=== PATIENT | female | born 1955 | race Caucasian/White ===

== ENCOUNTER 2017-08-07 14:12 | Outpatient (CLI) | payer OTHER | END 2017-08-07 14:14 | LOC: LAB 14:12 | PROVIDERS: ATTEND Family Medicine | DX: E03.9 Hypothyroidism, unspecified (principal) | CPT/HCPCS: 36415; 84443 ==

== ENCOUNTER 2017-08-16 10:50 | Outpatient (CLI) | payer OTHER | END 2017-08-16 10:52 | LOC: LABRHC 10:50 | PROVIDERS: ATTEND Family Medicine | DX: N30.01 Acute cystitis with hematuria (principal) | CPT/HCPCS: 87086 ==

== ENCOUNTER 2017-10-03 15:02 | Outpatient (CLI) | payer OTHER ==
[2017-10-04 14:02] LABS: ADENOVIRUS DNA NEGATIVE (NEGATIVE); BORDETELLA PERTUSSIS DNA NEGATIVE (NEGATIVE); SOURCE: SWAB
== END 2017-10-03 15:03 ==
LOC: LABRHC 15:02
PROVIDERS: ATTEND Family Medicine
DX: R09.81 Nasal congestion (principal)
CPT/HCPCS: 87486; 87581; 87633; 87798

== ENCOUNTER 2018-03-19 10:46 | Outpatient (CLI) | payer OTHER ==
[2018-03-19 11:34] LABS: eGFR (African) > 60; eGFR (Non-African) > 60
== END 2018-03-19 10:47 ==
LOC: LAB 10:46
PROVIDERS: ATTEND Physician Assistant
DX: R53.83 Other fatigue (principal); E78.2 Mixed hyperlipidemia; E03.9 Hypothyroidism, unspecified; I10 Essential (primary) hypertension
CPT/HCPCS: 36415; 80053; 80061; 84439; 84443; 84481; 85651; 86038; 86141

== ENCOUNTER 2018-03-24 13:49 | Outpatient (CLI) | payer OTHER ==
--- NOTE | 2018-03-24 15:44 | Diagnostic Imaging Report ---
Report Submission Date: Mar 24, 2018 3:25:46 PM CDT Patient Study Name: GERALD GAY Date: Mar 24, 2018 2:02:22 PM CDT Modality Type: CT\SR Gender: F Description: CT C-SPINE W/O CONTRAS : 51 Institution: [facility] Physician: PRINCE SPRINGER CT cervical spine History: Neck pain Technique: Helically acquired images were obtained through the cervical spine. Sagittal and coronal reconstructions were performed. Findings: There has been anterior fusion with placement of interbody fusion devices at C4/5 and C7/T1. The fusion at C4/5 does appear to be solid. The fusion at C7/T1 is not complete. There is no prevertebral soft tissue swelling. There is no evidence for loosening of the hardware. The dens is intact. The lateral masses of C1 and C2 are aligned. Visualized paranasal sinuses and mastoid air cells are clear. C2/3: Unremarkable C3/4: There is no central stenosis. However, secondary to uncovertebral joint hypertrophy, there is [id number] right and moderate to severe left foraminal narrowing. C4/5: This is the level of prior fusion. There is no central stenosis or foraminal narrowing. C5/6: This is a level of significant abnormality. At this level, there is a broad-based posterior disc and osteophyte complex. The AP dimension of the canal is narrowed to approximately 8 mm generating at least moderate central stenosis. There is additionally severe bilateral foraminal narrowing secondary to uncovertebral joint hypertrophy. C6/7: There is mild central stenosis at this level with the AP dimension of the canal measuring approximately 9.5 mm. However, there is severe bilateral foraminal narrowing secondary to uncovertebral joint hypertrophy. C7/T1: This is the level of prior fusion without central stenosis or foraminal narrowing. Impression: Please see body of report with regard to postoperative and degenerative findings by level. Electronically signed on Mar 24, 2018 3:25:46 PM CDT by: Ly JANE
== END 2018-03-24 14:00 ==
LOC: RAD 13:49
PROVIDERS: ATTEND Physician Assistant
DX: M54.2 Cervicalgia (principal); R20.0 Anesthesia of skin
CPT/HCPCS: 72125

== ENCOUNTER 2018-04-09 03:41 | Emergency (ER) | payer OTHER ==
--- NOTE | 2018-04-09 04:25 | ED Physician Documentation ---
General Adult - HISTORIAN Historian: patient - HPI Stated Complaint: Urinary difficulty Chief Complaint: General Adult Onset: days ago Timing: worse Severity: moderate Further Comments: yes (Pt is a 62 yo female with severe abd/pelvic pain. Pt has hx urge incontinence as well as neck and back pain with sciatica and was seen in pcp's office yesterday and rx'd myrbetrique 25 mg qd. Pt had been on oxybutynin, which she says made her sx worse, causing vaginal pain, and wanted to try a different med. Pt c/o frequent urges to void, but is unable to, or has only dribbling voids. Pt says she feels as if her bladder and uterus ( though she has had a hysterectomy) are dropping down into her pelvis/vagina. Pt c/o burning with trying to void. Pt took pyridium, with no relief of burning. Pt denies nausea. Pt has had normal bm's without diarrhea/ constipation.) - ROS CONST: no problems EYES/ENT: none CVS/RESP: none GI/: abdominal pain, problems urinating MS/SKIN/LYMPH: back pain (chronic neck and back pain) - PAST HX Past History: other (Neck & back pain, sciatica; hypothyroidism; urge incontinence; HLD; HTN; Asthma; anxiety/depression.) Surgeries/Procedures: hysterectomy Allergies/Adverse Reactions: Allergies Allergy/AdvReac Type Severity Reaction Status Date / Time zoster vaccine live Allergy Unverified 04/09/18 03:59 sudfed/aluterol combo Allergy Severe Seizure Uncoded 04/09/18 03:59 Home Medications: Ambulatory Orders Medication Instructions Recorded Mirabegron [Myrbetriq] 25 mg PO DAILY 04/09/18 Phenazopyridine HCl [Pyridium] 100 mg PO TID 04/09/18 - SOCIAL HX Smoking History: non-smoker - FAMILY HX Family History: No (unk) - VITAL SIGNS Vital Signs: Vital Signs Temp Pulse Resp BP Pulse Ox 97.6 F 77 18 168/66 96 04/09/18 03:45 04/09/18 03:45 04/09/18 03:45 04/09/18 03:45 04/09/18 03:45 - REVIEWED ASSESSMENTS Nursing Assessment Reviewed: Yes Vitals Reviewed: Yes Progress - Progress Progress: U/a dipstick trace pos for glucose, ketone, protein, and 1+ pos for blood and bilirubin; Pos for Nitrites, but pt has taken pyridium which may have caused false results. CT abd/pelvis w/o contrast: L4-5 and L5-S1 fusion has been performed. Obesity is observed. Mild left hydroureteronephrosis is observed. The lung bases, liver, gallbladder, pancreas, adrenals, and spleen are unremarkable. Multiple surgical clips are present in the stomach. An indeterminate 2.4 cm hyperdense lesion emanates laterally from the mid right kidney. Bowel loops exhibit normal caliber and wall thickness. A small left renal cyst is present. Pelvic sections reveal a 3 mm distal left ureteral stone just proximal to the ureterovesical junction. Hysterectomy has been performed. Pelvic bowel loops are normal including a normal appendix. Impression: 1. 3 mm distal left ureteral stone with mild obstructive uropathy. 2. Indeterminate hyperdense 2.4 cm right renal lesion. Recommend nonemergent ultrasound follow-up. 3. Obesity, lumbar fusion, hysterectomy, and normal appendix. Toradol 15 mg IV in ER Zofran 4 mg IV in ER 1 L NS Dilaudid 0.5 mg IV x 2 in ER improved Rocephin 1 gm IV for possible UTI Bactrim DS 1 tab po in ER Flomax 0.4 mg po in ER D/c instructions Rx Flomax 0.4 mg. Take one by mouth once daily for 5 days or until kidney stone passes. Rx Bactrim DS. Take one every 12 hrs for 7 days. Rx Zofran ODT 4 mg. Take one every 8 hrs as needed for nausea/vomiting. Rx [place] (5/325). Take one or two every 4 to 6 hrs as needed for pain. Ketorolac (Toradol) 10 mg. Take one every 6 hrs as needed for pain. Maximum 4 per day. Maximum duration 5 days. Stop taking Celebrex while using Toradol. Start this evening in place of Celebrex. Take [place], as above, until this evening, for pain. Kidney stones that are less than 4 mm in size (yours is 3 mm) usually pass in 72 hours or less. Follow up with primary provider to arrange for ultrasound study of a 2.4 cm lesion seen on right kidney in CT scan. General Adult Physical Exam - PHYSICAL EXAM GENERAL APPEARANCE: moderate distress EENT: pharynx normal NECK: normal inspection, supple RESPIRATORY: no resp distress, chest non-tender, breath sounds normal CVS: reg rate & rhythm, heart sounds normal ABDOMEN: soft, normal bowel sounds, tenderness (lower abd tenderness), other ( pelvic exam: no bladder prolapse) BACK: normal inspection SKIN: warm/dry, normal color EXTREMITIES: non-tender, normal range of motion, no evidence of injury NEURO: oriented X3, motor nml, sensation nml Discharge Clincal Impression: Kidney stone, Urge incontinence, R kidney lesion on CT study Referrals: Skylar Perea MD [Primary Care Provider] - 2 Days Condition: Stable Disposition: HOME, SELF-CARE Decision to Admit: NO Decision Time: 06:45
[2018-04-09 04:40] LABS: BASOPHILS % 0.7 (0.0-1.5); MEAN CORPUSCULAR HEMOGLOBIN 30.9 pg (28.0-34.0); MEAN CORPUSCULAR VOLUME 94.5 fl (80.0-100.0); MONOCYTES % 4.9 % (0.0-11.0); NEUTROPHILS # 5.8 # k/uL (1.4-7.7)
[2018-04-09] MEDS: KETOROLAC TROMETHAMINE 30 MG/1ML VIAL ONE (04:40)
[2018-04-09] MEDS: KETOROLAC TROMETHAMINE 30 MG/1ML VIAL IVP ONE (04:40)
[2018-04-09 04:55] LABS: eGFR (African) > 60; eGFR (Non-African) > 60
[2018-04-09] MEDS: cefTRIAXone SODIUM 1 GM in 0.9 % SODIUM CHLORIDE 100 ML IV ONE (05:45)
[2018-04-09] MEDS: 0.9 % SODIUM CHLORIDE 1,000 ML IV ONE (05:45)
[2018-04-09] MEDS: ONDANSETRON HCL/PF 4 MG/ 2ML VIAL IVP ONE (05:50)
[2018-04-09] MEDS: cefTRIAXone SODIUM 1 GM VIAL ONE (05:51)
[2018-04-09] MEDS: HYDROmorphone HCL/PF 1 MG/ML DISP.SYRIN IVP ONE (05:51)
[2018-04-09] MEDS: 0.9 % SODIUM CHLORIDE 100 ML IV ONE (05:51)
[2018-04-09] MEDS: HYDROmorphone HCL/PF 2 MG/ML DISP.SYRIN ONE (05:51)
[2018-04-09] MEDS: TAMSULOSIN HCL 0.4 MG CAP.ER.24H PO ONE (06:03)
[2018-04-09] MEDS: SULFAMETHOXAZOLE/TRIMETHOPRIM 1 EACH TABLET PO ONE (06:04)
--- NOTE | 2018-04-09 06:39 | Diagnostic Imaging Report ---
DAVE TRAN [facility] [address] [facility] [address] [place], [place]. [address] Report Submission Date: Apr 09, 2018 5:09:31 AM CDT Patient Study Name: GERALD GAY Date: Apr 09, 2018 4:47:49 AM CDT Modality Type: CT\SR Gender: F Description: CT ABD PELVIS W/O CO : 51 Institution: [facility] Physician: DAVE TRAN Computed tomography abdomen pelvis without contrast History: Left flank pain and difficulty voiding Findings: Transverse abdomen and pelvis sections are obtained without contrast. L4-5 and L5-S1 fusion has been performed. Obesity is observed. Mild left hydroureteronephrosis is observed. The lung bases, liver, gallbladder, pancreas , adrenals, and spleen are unremarkable. Multiple surgical clips are present in the stomach. An indeterminate 2.4 cm hyperdense lesion emanates laterally from the mid right kidney. Bowel loops exhibit normal caliber and wall thickness. A small left renal cyst is present. Pelvic sections reveal a 3 mm distal left ureteral stone just proximal to the ureterovesical junction. Hysterectomy has been performed. Pelvic bowel loops are normal including a normal appendix. Impression: 1. 3 mm distal left ureteral stone with mild obstructive uropathy. 2. Indeterminate hyperdense 2.4 cm right renal lesion. Recommend nonemergent ultrasound follow-up. 3. Obesity, lumbar fusion, hysterectomy, and normal appendix. Electronically signed on Apr 09, 2018 5:09:31 AM CDT by: Octaviano JANE
[2018-04-09 07:35] VITALS: BP 148/68
[2018-04-09 08:59] LABS: APPEARANCE,URINE CLOUDY (CLEAR); COLOR,URINE YELLOW (YELLOW)
[2018-04-09 09:00] LABS: PH URINE 5.5 (5.0 - 8.0)
[2018-04-09 09:47] LABS: OCCULT BLOOD,URINE 1+ (NEGATIVE)
== END 2018-04-09 07:25 | disposition home or self-care (01) ==
LOC: ED 03:41
DX: N20.0 Calculus of kidney (principal); N39.41 Urge incontinence; N28.9 Disorder of kidney and ureter, unspecified
CPT/HCPCS: 74176; 80053; 81002; 85025; 87086; A9270; J0696; J1170; J1885; J2405; J7030; 51701; 96365; 96366; 96368; 96375; 99284; S1016

== ENCOUNTER 2018-04-29 13:33 | Outpatient (CLI) | payer OTHER ==
[~2018-04-29 13:33] MED LIST: Lidocaine 1% 5ml(IM or SUTURE)(PAIN CLINIC) ONE; TRIAMCINOLONE ACETONID 40MG/ML VIAL ONE; WATER FOR INJECTION,STERILE 100 ML VIAL IJ ONE
--- NOTE | 2018-05-04 14:48 | HISTORY AND PHYSICAL REPORT ---
REFERRING PHYSICIAN: Dr. Skylar Perea Dear Skylar: HISTORY OF PRESENT ILLNESS: I had the opportunity of seeing Mere Gallardo. Mere is a very nice 62-year-old white female who presents with right-sided neck, shoulder, and arm pain. She says that this has been going on for quite a while. She has had a C5-C6 and C7-T1 surgery done in 2009. She describes surgery followed by a revision of the surgery at an additional level. She said about 2 months ago, she began noticing right-sided neck pain radiating to her shoulder blade and into the posterior arm, forearm, wrist, and the entire hand. She is right hand dominant. She reports that the right hand feels weak. Pain is made worse with activity. Worse over the course of the day. Worse with driving. She gets knife-like sensations in the shoulder blade. Her first ACDF was done in 2009 with a revision done in 2011. She denies pain on the left. She denies an accident or an injury. She says that the symptoms get tremendously worse with extension of the neck and driving. She has a CT of her cervical spine from March of 2018 revealing C5-C6 and C6-C7 neural foraminal stenosis, mild C6-C7 central stenosis, and a C4-C5 and C7-T1 fusion. PAST MEDICAL HISTORY: 1. History of vision problems. 2. Hearing loss. 3. Nose or sinus problems. 4. Hypertension. 5. Bruising easily. 6. Asthma or bronchitis. 7. Urinary incontinence. 8. Kidney problems. 9. Seizures. 10. Depression. 11. Anxiety. 12. Thyroid disease. 13. GERD. 14. DJD. 15. Osteoarthritis. 16. Plantar fasciitis. 17. TMJ. 18. Tinnitus. PAST SURGICAL HISTORY: 1. Lumbar fusion with hardware. 2. ACDF x2. First one in [address] Abdul in [place]. The second was in [address] Senior in [place]. 3. Bunion repair x2. 4. . 5. Deviated septum repair. 6. D & C. 7. Ovarian cyst removal. 8. Tonsillectomy. CURRENT DAILY MEDICATIONS: 1. Atenolol 25 mg daily. 2. Iron daily. 3. B12 daily. 4. Aspirin 81 mg daily. 5. Biotin 10,000 daily. 6. Celebrex 200 mg at bedtime. 7. Duloxetine 90 mg at bedtime. 8. Ipratropium b.i.d. 9. Levothyroxine 75 mcg daily. 10. Lovastatin 40 mg daily. 11. Premarin 0.625 mg daily. 12. Flovent 80 mcg b.i.d. 13. Myrbetriq 25 mg at bedtime. 14. Alprazolam 0.25 mg p.r.n. 15. Atrovent inhaler 17 mcg p.r.n. 16. Flexeril 5 mg p.r.n. SOCIAL HISTORY: She has never used tobacco. She drinks alcohol approximately once per year. Denies recreational drugs. She is a since November of 2013. She has 2 children. She lives in a home with a friend. She completed 12 years of schooling. She is retired. She is not employed. She retired in 2017. She is not disabled. FAMILY HISTORY: Father with heart disease and pain problems related to his back. Mother with cancer. Sibling with stroke, diabetes, thyroid disease, and pain problems. REVIEW OF SYSTEMS: In the last month or so, she reports a hoarse voice, bleeding and bruising easily, urinary incontinence, cough or cold, stomach pain, kidney stones, constipation, feeling depressed, and feeling anxious. Pain is worsened with lying down and driving. Nothing improves her pain. PHYSICAL EXAMINATION: General: The patient is well nourished, well developed, and in no apparent distress. Awake, alert, and oriented. HEENT: Pupils are equal, round, and reactive to light and accommodation. Extraocular movements intact. No facial droop. Neck: There is full range of motion of the cervical spine. No evidence of adenopathy. Thyroid is nontender, not enlarged. Carotids are without bruits. Chest: Clear to auscultation bilaterally. Normal chest excursion. Heart: Regular rate and rhythm without murmur. Abdomen: Benign. Normoactive bowel sounds. Motor/sensory: Intact in the upper and lower extremities. Moves all extremities freely. Extremities: Strength is 5/5 and equal in the upper extremities. Conference Manager strength is somewhat diminished in the right hand versus the left. Reflexes are 2+ and equal in biceps tendon, triceps tendon, and brachioradialis. ASSESSMENT: 1. Anterior cervical diskectomy and fusion (ACDF) at C4-C5 and C7-T1. 2. C5-C6 and C6-C7 neural foraminal stenosis with disk osteophyte complex. PLAN: Plan for a right C6-C7 epidural steroid injection under fluoroscopic guidance today. We will follow this nice lady up and re-evaluate her in approximately 1 month. She is in agreement today and we will proceed. Thank you very much for allowing me to take part in the care of this nice lady. I appreciate the opportunity to take part in the care of your patients. cc: Dr. Skylar JANE
--- NOTE | 2018-05-04 14:56 | CERVICAL ESI WITH FLUORO ---
PROCEDURE: Right C6-C7 epidural steroid injection with fluoroscopic guidance. DESCRIPTION OF PROCEDURE: The risks and benefits were discussed with the patient, including the risks of infection, bleeding, nerve injury including paralysis, and headache. Furthermore, I discussed the risk of steroid exposure causing hyperglycemia, hypertension, osteoporosis, or increased infectious risks. The patient understood these risks and agreed to proceed. Consent was obtained. The patient was placed prone on the fluoroscopy table with a pillow underneath the chest to afford slight anterior flexion of the cervical spine. The patient's back of the neck was cleaned and a sterile drape was applied. A Tuohy epidural needle was inserted with a right paramedian approach at the C6-C7 interspace level. The position of the needle was verified with AP and lateral fluoroscopic views. The needle was advanced with a normal saline [id number] technique until [id number] was obtained. On obtaining [id number] to normal saline it was verified that there was no aspiration of CSF or blood. At this point, Omnipaque 240 myelogram dye was injected into the cervical epidural space. It was verified with fluoroscopic views that the dye was located within the epidural space in the desired distribution. At this point, the medication was injected into the cervical epidural space. The stylet was replaced in the needle and the needle was removed from the neck. The neck was cleaned free and a bandage was applied over the injection site. The patient tolerated the procedure well and was monitored afterwards for a total of 20 minutes during which time the vital signs remained stable and no adverse sequelae were experienced. The patient was discharged home in good condition. Prior to discharge the patient was given discharge instructions. ASSESSMENT: 1. Right cervical radiculitis. 2. Neural foraminal stenosis at C5-C6 and C6-C7. 3. Previous anterior cervical diskectomy and fusion (ACDF) at C4-C5 and C7-T1. PLAN: Right C6-C7 epidural steroid injection with fluoroscopic guidance. FOLLOW UP: Return to Clinic if problems develop or worsen. cc: Dr. Skylar JANE
== END 2018-04-29 13:35 ==
LOC: OUT 13:33
PROVIDERS: ATTEND Anesthesiology Pain Medicine
DX: M54.12 Radiculopathy, cervical region (principal); M99.51 Intervertebral disc stenosis of neural canal of cervical region
CPT/HCPCS: 62321; 99213; J3301; A4550; Q9966

== ENCOUNTER 2018-06-24 13:51 | Outpatient (CLI) | payer MEDICARE, OTHER ==
[~2018-06-24 13:51] MED LIST changes: +LIDOCAINE HCL/PF 2% 100 MG/5 ML VIAL IJ ONE; -Lidocaine 1% 5ml(IM or SUTURE)(PAIN CLINIC) ONE; +SALINE FLUSH 10 ML DISP.SYRIN IVF ONE; -WATER FOR INJECTION,STERILE 100 ML VIAL IJ ONE
--- NOTE | 2018-06-25 11:52 | CAUDAL ESI WITH FLUORO ---
SUBJECTIVE: Ms. Gallardo follows up on her cervicalgia neck pain. Right parascapular symptoms are much improved following cervical epidural injection. She says they are not completely gone, but she has been having a lot of low back pain and bilateral leg pain, worse on the left, but now also on the right. She had a history of an L4-L5 and S1 lumbar decompression, fusion, and instrumentation. She had an abdominal CT recently at [facility] and I can see that she has some recurrent stenosis above the level of her fusion. The junction is not well elucidated on abdominal CT and I have recommended an obtaining an MRI study to look at that level above her fusion. She denies having to flex to get relief. She says that being up on her feet and mopping the floor is what seems to make her symptoms the worst. She is planning on having bariatric surgery performed for weight reduction. At this point, I told her I would provide her with a palliative caudal epidural and follow her up in a month and obtain a new MRI study and then reevaluate both her neck and low back at that time. PROCEDURE: Caudal epidural steroid injection: DESCRIPTION OF PROCEDURE: The risks and benefits of a caudal epidural steroid injection were explained to the patient, including the risk of infection, bleeding, nerve injury, worsened pain, failure to relieve pain, spinal headache or steroid exposure risks, including hyperglycemia, hypertension, osteoporosis, and increased infectious risks. The patient understood the risks and agreed to proceed. The patient was placed on the fluoroscopy table in the prone position with a pillow underneath the abdomen. The caudal area was cleaned. AP and lateral fluoroscopic views were obtained, identifying the sacrum and sacral hiatus. The caudal epidural space was accessed from a percutaneous approach at the sacral hiatus with a needle. On entering the caudal epidural space, it was verified that there was no aspiration of blood or CSF or urine. Furthermore, the needle tip location was verified with lateral and AP fluoroscopic views. Omnipaque 240 myelogram dye was injected through the needle. The distribution of the dye was noted to be within the desired distribution within the caudal epidural space. At this point, the medication was injected into the caudal epidural space. The stylette was replaced in the needle and the needle was subsequently removed from the back. The patient tolerated the procedure without adverse sequelae. The sacral area was cleaned and a bandage was applied over the injection site. The patient was then monitored for 20 minutes following the procedure, during which time the vital signs remained stable and no adverse sequelae were noted or reported. The patient was discharged home with a driver license reviewing officer and was in good condition on discharge. ASSESSMENT: 1. Lumbar stenosis with bilateral neurogenic claudication, L3-L4 level. 2. Fusion L4 through S1. 3. Cervical radiculitis, now much improved. PLAN: Caudal epidural steroid injection today. FOLLOW UP: Patient is to call for complications or worsened pain. cc: Dr. Skylar JANE
== END 2018-06-24 13:52 ==
LOC: OUT 13:51
PROVIDERS: ATTEND Anesthesiology Pain Medicine
DX: M48.062 Spinal stenosis, lumbar region with neurogenic claudication (principal); M43.27 Fusion of spine, lumbosacral region; M54.12 Radiculopathy, cervical region
CPT/HCPCS: J2001; J3301; 62323; 99213; G0463

== ENCOUNTER 2018-10-23 13:54 | Outpatient (CLI) | payer MEDICARE, OTHER ==
[2018-10-23 14:33] LABS: eGFR (Non-African) > 60
--- NOTE | 2018-10-24 04:19 | Diagnostic Imaging Report ---
SCARLET GARSIA [facility] [address] [facility] [address] [address] Report Submission Date: Oct 23, 2018 2:31:27 PM INSTRUCTIONAL COACH Patient Study Name: GERALD GAY Date: Oct 23, 2018 2:07:28 PM INSTRUCTIONAL COACH Modality Type: DX Gender: F Description: KNEE 1 OR 2 VIEWS : 51 Institution: [facility] Physician: SCARLET GARSIA Examination: Plain film left knee History: LEFT KNEE, PAIN IN LEFT KNEE FOR ABOUT A MONTH, NO KNOWN INJURY Findings: 2 views of the left knee demonstrates normal cortical margins. No fracture. No dislocation. No joint effusion. No soft tissue irregularity. Impression: No acute appearing osseous abnormality Electronically signed on Oct 23, 2018 2:31:27 PM INSTRUCTIONAL COACH by: Lalo JANE
== END 2018-10-23 13:56 ==
LOC: LAB 13:54
PROVIDERS: ATTEND Family Medicine
DX: M62.838 Other muscle spasm (principal); G89.29 Other chronic pain; M25.562 Pain in left knee
CPT/HCPCS: 36415; 73560; 80053